=== PATIENT | female | born 1985 | race Asian ===

== ENCOUNTER 2016-06-30 01:27 | Inpatient (IN) | payer SELFPAY ==
[~2016-06-30] VITALS: Ht 160 cm; Wt 61.7 kg
[2016-06-30 02:00] VITALS: BP 116/77
[2016-06-30] MEDS ORDERED: OXYTOCIN 20 UNITS/LR PREMIX 1,000 ML IV SCH (02:22)
[2016-06-30] MEDS ORDERED: LACTATED RINGERS 1,000 ML IV SCH (02:22)
[2016-06-30] MEDS ORDERED: PROMETHAZINE 25 MG/ML VIAL IVP PRN (02:25)
[2016-06-30] MEDS ORDERED: NALBUPHINE 10 MG/ML AMP IVP PRN (02:25)
[2016-06-30] MEDS ORDERED: METHYLERGONOVINE 0.2 MG/ML AMP IM SCH (02:25)
[2016-06-30] MEDS ORDERED: OXYTOCIN 10 UNITS/ML VIAL IM PRN (02:25)
[2016-06-30] MEDS ORDERED: CARBOPROST 250 MCG/ML AMP IM PRN (02:25)
[2016-06-30] MEDS ORDERED: OXYTOCIN 20 UNITS/LR PREMIX 1,000 ML IV ONE ×2 (02:58→08:59)
[2016-06-30 03:12] LABS: BASOPHILS # (AUTO) 0.1 K/uL (0.00-0.22); BASOPHILS % (AUTO) 0.9 % (0.0-2.0); EOSINOPHILS # (AUTO) 0.1 K/uL (0-0.4); EOSINOPHILS % (AUTO) 0.8 % (0.0-4.0); HEMATOCRIT 36.5 % (36-48); HEMOGLOBIN 12.3 g/dL (12.0-16.0); LYMPHOCYTES # (AUTO) 1.3 K/uL (2.5-16.5); LYMPHOCYTES % (AUTO) 14.8 % (20.5-51.1); MEAN CORPUSCULAR HEMOGLOBIN 31 pg (27-31); MEAN CORPUSCULAR HGB CONC 34 g/dL (33-37); MEAN CORPUSCULAR VOLUME 91 fL (80-94); MONOCYTES # (AUTO) 0.8 K/uL (0.8-1.0); NEUTROPHILS # (AUTO) 6.2 K/uL (1.8-7.7); NEUTROPHILS % (AUTO) 74.5 % (42.2-75.2); PLATELET COUNT (AUTO) 148 K/uL (140-450); RED BLOOD CELL COUNT(AUTO) 4.01 MIL/uL (4.20-5.40); RED CELL DISTRIBUTION WIDTH 13.3 % (11.6-13.7); WHITE BLOOD COUNT (AUTO) 8.5 K/uL (4.8-10.8)
[2016-06-30 03:13] LABS: APPEARANCE,URINE CLEAR (CLEAR); BILIRUBIN,URINE NEGATIVE (NEGATIVE); BLOOD, URINE NEGATIVE (NEGATIVE); COLOR,URINE YELLOW (YELLOW); LEUKOCYTE ESTERASE ,URINE NEGATIVE (NEGATIVE); NITRITE, URINE NEGATIVE (NEGATIVE); PROTEIN,URINE NEGATIVE (NEGATIVE); UGLUCOSE NEGATIVE (NEGATIVE); UROBILINOGEN,URINE 0.2 EU/dL (0.2 - 1)
[2016-06-30 03:19] LABS: BACTERIA,URINE RARE /HPF (None Seen); RBC,URINE 0-3 /HPF (0-5); SQUAMOUS EPITHELIAL CELL,UR 0-3 /LPF (0-3 (FEW)); WBC,URINE 0-3 /HPF (0-5)
[2016-06-30 03:45] LABS: HIV RAPID SCREEN NON-REACTIVE (NON REACTIV)
[2016-06-30] MEDS ORDERED: MISOPROSTOL 25 MCG TAB VG SCH (04:05)
[2016-06-30] MEDS ORDERED: INFLUENZA VIRUS VACCINE QUAD 0.5 ML SYR IMVAC SCH (04:15)
[2016-06-30] MEDS ORDERED: MISOPROSTOL 25 MCG TAB ONE (04:16)
[2016-06-30] MEDS ORDERED: INFLUENZA VIRUS VACCINE QUAD 0.5 ML SYR IMVAC PRN (07:09)
[2016-06-30] MEDS ORDERED: BETAMETH ACET/BETAMETH NA PH 30 MG/5 ML VIAL IM SCH (08:20)
[2016-06-30] MEDS ORDERED: AMPICILLIN 2,000 MG in NACL 0.9% 100 ML IV SCH (08:25)
[2016-06-30] MEDS ORDERED: AMPICILLIN 2,000 MG VIAL ONE (08:31)
[2016-06-30] MEDS ORDERED: BETAMETH ACET/BETAMETH NA PH 30 MG/5 ML VIAL IM ONE (08:31)
--- NOTE | 2016-06-30 08:47 | NUR ---
PATIENT HAS BEEN SCREENED AND CATEGORIZED LOW NUTRITION RISK. PATIENT WILL BE SEEN WITHIN 7 DAYS OF ADMISSION. 07/06/[address]
[2016-06-30] MEDS ORDERED: LIDOCAINE MPF 2% 100 MG/5 ML VIAL INJ ONE (08:48)
[2016-06-30 09:28] LABS: RAPID PLASMA REAGIN NON-REACTIVE (Non Reactiv)
[2016-06-30] MEDS ORDERED: oxyCODONE/APAP 5/325 MG 1 TAB TAB PO PRN (12:00)
[2016-06-30] MEDS ORDERED: METHYLERGONOVINE 0.2 MG TAB PO PRN (12:00)
[2016-06-30] MEDS ORDERED: MEASLES, MUMPS, AND RUBELLA 1 VIAL SQVAC PRN (12:00)
[2016-06-30] MEDS ORDERED: TEMAZEPAM 15 MG CAP PO PRN (12:00)
[2016-06-30] MEDS ORDERED: IBUPROFEN 800 MG TAB PO PRN (12:00)
[2016-06-30] MEDS ORDERED: BENZOCAINE/MENTHOL 20%-0.5% 60 GM CAN TP PRN (12:00)
[2016-06-30] MEDS ORDERED: HYDROcodone/APAP 5/325 MG 1 TAB TAB PO PRN (12:00)
[2016-06-30] MEDS ORDERED: DOCUSATE SOD/SENNA 50/8.6 MG 1 TAB PO SCH (21:00)
[2016-07-01 06:20] LABS: HEMATOCRIT 34.4 % (36-48); HEMOGLOBIN 11.4 g/dL (12.0-16.0)
== END 2016-07-02 23:15 | disposition home or self-care (01) | DRG 775 ==
LOC: MLD 01:27 → MFCC 12:37
PROVIDERS: ADMIT Obstetrics & Gynecology; ATTEND Obstetrics & Gynecology
PROC: 10E0XZZ Delivery of Products of Conception, External Approach (ICD-10-PCS; principal; 2016-06-30)
PROC: 0W8NXZZ Division of Female Perineum, External Approach (ICD-10-PCS; 2016-06-30)
PROC: 3E0234Z Introduction of Serum, Toxoid and Vaccine into Muscle, Percutaneous Approach (ICD-10-PCS; 2016-07-02)
DX: O60.14X0 Preterm labor third trimester with preterm delivery third trimester, not applicable or unspecified (principal); Z3A.36 36 weeks gestation of pregnancy; Z37.0 Single live birth; Z23 Encounter for immunization
CPT/HCPCS: 36415; 51702; 59200; 59409; 81001; 85018; 85025; 86592; 86886; 86900; 86901; 90658; 90715; J0290; J0702; J2001; J2590; J7120